=== PATIENT | female | born 1985 ===

== ENCOUNTER → 2020-09-04 | Day surgery (SDC) | payer OTHER ==
[~2020-09-04] MED LIST: FEOSOL325 MG; [UNRECOGNIZED DRUG - OTHER]; [UNRECOGNIZED DRUG - OTHER]; [UNRECOGNIZED DRUG - OTHER]
== END | disposition home or self-care (01) ==
LOC: ADM 08-28 11:45 → CIR.AMB 11:45
PROVIDERS: ATTEND Obstetrics & Gynecology Obstetrics
DX: N93.8 Other specified abnormal uterine and vaginal bleeding (principal); Z20.828 Contact with and (suspected) exposure to other viral communicable diseases

== ENCOUNTER 2020-10-03 20:07 | Emergency (ER) | payer OTHER ==
[~2020-10-03] VITALS: Ht 157.5 cm; Wt 67.1 kg
[2020-10-03] MEDS ORDERED: CRYSELLE-28 TA1 EACH PO (21:06)
== END 2020-10-05 02:47 | disposition home or self-care (01) ==
LOC: ER 20:07
DX: N93.8 Other specified abnormal uterine and vaginal bleeding (principal); D25.1 Intramural leiomyoma of uterus; Z03.818 Encounter for observation for suspected exposure to other biological agents ruled out; R42 Dizziness and giddiness